=== PATIENT | female | born 1995 | race Caucasian/White ===

== ENCOUNTER 2016-08-11 12:16 | Emergency (ER) | payer OTHER ==
[2016-08-11 12:53] LABS: RED BLOOD COUNT 4.74 M/UL (4.00-5.10)
[2016-08-11 13:09] LABS: BUN/CREATININE RATIO 17 (0-10)
== END 2016-08-11 15:49 | disposition home or self-care (01) ==
LOC: ER1 12:16
PROVIDERS: Physician Assistant Medical
DX: N10 Acute pyelonephritis (principal)
CPT/HCPCS: 36415; 80053; 81001; 82150; 83690; 84703; 85025; 87077; 87086; 87186; 96361; 96374; 96375; 99284; J2270; J2405; J7030

== ENCOUNTER 2020-07-31 19:24 | Emergency (ER) | payer BC ==
[~2020-07-31 19:24] MED LIST: CEFUROXIME500 MG PO; MACROBID 100 M100 MG PO
[2020-07-31 21:29] LABS: HEMOGLOBIN 15.1 gm/dl (12.3-15.3); RED BLOOD COUNT 5.03 M/UL (4.00-5.10)
[2020-07-31 21:48] LABS: BUN/CREATININE RATIO 14 (0-10)
[2020-07-31] MEDS ORDERED: AMOXICILLIN500 M1 PO (22:06)
[2020-07-31] MEDS ORDERED: ZOFRAN4 MG PO (22:06)
== END 2020-07-31 22:15 | disposition home or self-care (01) ==
LOC: ER1 19:24
PROVIDERS: Emergency Medicine
DX: E86.0 Dehydration (principal); R11.2 Nausea with vomiting, unspecified; J02.0 Streptococcal pharyngitis
CPT/HCPCS: 80053; 81001; 83690; 84703; 85025; 87081; 87086; 87880; 93005; 96374; 99284; J2405